=== PATIENT | male | born 1955 | race Caucasian/White ===

== ENCOUNTER → 2016-03-20 | Outpatient (CLI) | payer BC ==
--- NOTE | 2016-03-20 09:36 | DIAGNOSTIC IMAGING REPORT ---
CHEST 2 VIEWS ROUTINE CLINICAL HISTORY: I49.1 PAC (premature atrial contraction)J45.909 Asthmatic bronch COMPARISON STUDY: No previous studies for comparison. FINDINGS: The cardiac and mediastinal contours are normal. There is no evidence of focal pulmonary consolidation. There is no evidence of failure. No pleural effusions are visualized.[ IMPRESSION: No active disease in the chest. Electronically signed by: Taz Manuel M.D. 03/20/2016 9:34 AM Dictated Date/Time: 03/20/2016 9:34 AM
[2016-03-20 10:11] LABS: BASO % 0.6 %; BASO ABS # 0.03 K/uL (0-0.2); COMPLETE YES; HEMATOCRIT 44.3 % (42-52); IG% 0.2 %; LYMPH % 24.2 %; LYMPH ABS # 1.28 K/uL (1.2-3.4); MEAN CELL VOLUME 92.7 fL (80-100); MEAN CORPUSCULAR HEMOGLOBIN 31.4 pg (25-34); MEAN CORPUSCULAR HGB CONC 33.9 g/dl (32-36); MEAN PLATELET VOLUME 10.4 fL (7.4-10.4); MONO % 9.4 %; NEUT % 61.6 %; PLATELET COUNT 199 K/uL (130-400); RED BLOOD COUNT 4.78 M/uL (4.7-6.1)
[2016-03-20 10:49] LABS: BLOOD UREA NITROGEN 14 mg/dl (7-18); GLUCOSE 96 mg/dl (70-99)
[2016-03-20 10:50] LABS: ALKALINE PHOSPHATASE 96 U/L (45-117); CALCIUM 8.7 mg/dl (8.5-10.1); CARBON DIOXIDE 29 mmol/L (21-32); CHLORIDE 107 mmol/L (98-107); MAGNESIUM 2.4 mg/dl (1.8-2.4); POTASSIUM 4.1 mmol/L (3.5-5.1); SODIUM 143 mmol/L (136-145)
[2016-03-20 11:14] LABS: ALB/GLOB RATIO 1.1 (0.9-2); ALT/SGPT 35 U/L (12-78); AST/SGOT 22 U/L (15-37); CHOLESTEROL 176 mg/dl (0-200); CHOLESTEROL/HDL RATIO 4.4; HDL CHOLESTEROL 40 mg/dl; LDL CHOLESTEROL CALCULATED 111 mg/dl; TRIGLYCERIDES 123 mg/dl (0-150); VERY LOW DENSITY LIPOPROT CALC 25 mg/dl
== END | disposition home or self-care (01) ==
LOC: C.RAD 09:01
PROVIDERS: ATTEND Nurse Practitioner Family
DX: I49.1 Atrial premature depolarization (principal); J45.909 Unspecified asthma, uncomplicated; Z13.1 Encounter for screening for diabetes mellitus; Z13.220 Encounter for screening for lipoid disorders

== ENCOUNTER 2020-07-29 05:18 | Observation (INO) ==
--- NOTE | 2020-07-03 10:49 | PAT Medication Instructions ---
Medication Instructions Date of Service July 03, 2020 Home Medications glucosamine sulfate [Glucosamine] 1 tab PO QAM multivitamin 1 tab PO QAM zinc 50 mg PO Q2D STOP taking 2 weeks before surgery (or as soon as possible if surgery is within 2 weeks) glucosamine sulfate [Glucosamine] 1 tab PO QAM DO NOT take the morning of surgery multivitamin 1 tab PO QAM zinc 50 mg PO Q2D Other Notes If you have any questions please call us at [phone] or [phone] or [phone] or [phone]
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
--- NOTE | 2020-07-07 09:31 | XRay Report ---
XR chest Pre-admission PA/Lat HISTORY: 65 years-old Male pat [chronic degenerative joint disease COMPARISON: Chest radiographs 03/20/2016 TECHNIQUE: PA and lateral views of the chest FINDINGS: Cardiomediastinal and hilar silhouettes are within normal limits. No pneumothorax, pleural effusion, airspace consolidation or overt pulmonary edema. Degenerative changes of the shoulders and spine. IMPRESSION: No acute process. ACT 112: Negative or not required by law. The above report was generated using voice recognition software. It may contain grammatical, syntax o r spelling errors. Electronically signed by: Hugh Ahn M.D. 07/07/2020 9:29 AM
[2020-07-07 10:57] LABS: Basophils # (auto) 0.03 K/uL (0-0.2); Basophils % (auto) 0.7 %; Eosinophils # (auto) 0.12 K/uL (0-0.5); Eosinophils % (auto) 2.7 %; Hematocrit (blood only) 43.5 % (42-52); Hemoglobin 14.6 g/dL (14.0-18.0); Immature Granulocytes # (auto) 0.01 K/uL (0.00-0.02); Immature Granulocytes % (auto) 0.2 %; Lymphocytes # (auto) 1.03 K/uL (1.2-3.4); Lymphocytes % (auto) 23.6 %; Mean Corpuscular Hemoglobin 31.2 pg (25-34); Mean Corpuscular Hgb Conc 33.6 g/dL (32-36); Mean Corpuscular Volume 92.9 fL (80-100); Mean Platelet Volume 10.1 fL (7.4-10.4); Monocytes % (auto) 11.4 %; Neutrophils # (auto) 2.68 K/uL (1.4-6.5); Neutrophils % (auto) 61.4 %; Platelet Count 206 K/uL (130-400); RDW Coefficient of Variation 14.1 % (11.5-14.5); RDW Standard Deviation 47.7 fL (36.4-46.3); Red Blood Count 4.68 M/uL (4.7-6.1); White Blood Count 4.37 K/uL (4.8-10.8)
[2020-07-07 11:14] LABS: BUN Creatinine Ratio 13.5 (10-20); Creatinine Clr Calc Pharmacy 91.4 ml/min; Est GFR (African American) 105.7; Est GFR (Non-African American) 91.2; Potassium 4.9 mmol/L (3.5-5.1)
[2020-07-07 11:17] LABS: Partial Thromboplastin Ratio 1.1; Partial Thromboplastin Time 28.3 Seconds (21.0-31.0); Prothrombin Time 10.2 Seconds (9.0-12.0)
--- NOTE | 2020-07-07 12:32 | Electrocardiogram Report ---
Test Reason : Blood Pressure : / mmHG Vent. Rate : 066 BPM Atrial Rate : 066 BPM P-R Int : 170 ms QRS Dur : 088 ms QT Int : 388 ms P-R-T Axes : 066 019 030 degrees QTc Int : 406 ms Normal sinus rhythm Normal ECG When compared with ECG of 04-FEB-2020 07:48, Premature atrial complexes are no longer Present Confirmed by Hoang Johnson ([id number]) on 07/07/2020 12:32:13 PM Referred By: Keaton Carlton Confirmed By:Hoang Johnson
--- NOTE | 2020-07-26 11:19 | History and Physical Report ---
DATE OF ADMISSION: 07/29/2020 CHIEF COMPLAINT: Right knee pain, discomfort and instability. HISTORY OF PRESENT ILLNESS: The patient is a 65-year-old gentleman well known to me from a previous left knee scope done in 2013. He has got a long history of right knee problems dating back to an injury many years ago. His initial injury was back in the 1970s. Never had any surgery on this knee. He has developed increased pain, discomfort, and instability in his knee. It has gradually gotten worse over time. The instability is less of an issue and now just pain. 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 When he is up and on his leg for any period of time, it swells and gets painful. The more he is up on it, the more it hurts. He has been through extensive conservative treatment and not interested in anymore of that and would like to have his right knee fixed. Minimal relief from NSAIDS. PAST MEDICAL HISTORY: 1. Heart murmur. 2. Osteoarthritis. 3. Kidney stones. PAST SURGICAL HISTORY: Include, 1. Right shoulder surgery done by Dr. Davis. 2. Left knee scope done by myself in 2013. ALLERGIES: None. CURRENT MEDICATIONS: Include, 1. Glucosamine. 2. Daily vitamin. SOCIAL HISTORY: A 65-year-old male. Very active. Coaches Lacrosse. Does not smoke. FAMILY HISTORY: Noncontributory. REVIEW OF SYSTEMS: Negative for diabetes, neurologic problem, vascular problems, bleeding disorders. Denies any chest pain or shortness of breath. No history of DVT or PE. No known bleeding problems. PHYSICAL EXAMINATION: GENERAL: Shows a pleasant, middle-aged male, looks to be in excellent health. HEENT: Benign. NECK: Supple, no lymphadenopathy. LUNGS: Clear to auscultation. HEART: Has a regular rate and rhythm. ABDOMEN: Soft, nontender, nondistended. EXTREMITIES: Grossly neurovascularly intact except as follows: Examination of the right knee reveals a patient who ambulates independently. He has got varus alignment to his knee, which is increased with weightbearing. He has got a varus thrust. He has got bony hypertrophy in all 3 compartments. Small knee effusion. Fairly stiff knee with about a 10- to 15-degree flexion contracture, can only bend to about 100 degrees. He does have laxity with Dave testing. No pivot shift. X-RAYS: X-rays of the right knee reviewed. It shows advanced right knee DJD. He has got complete loss of his medial joint space. He has got tibiofemoral subluxation. He has got little loose body posteriorly. 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 His problem is now arthritis. He has failed conservative treatment and would like to have his right knee replaced. PLAN: We will take him to the operating room and do a right total knee replacement. The risks and benefits of this procedure were explained to the patient including, but not limited to, DVT, PE, , infection, neurological injury, vascular injury, bleeding problem, pain, limited range of motion, stiffness, failure to relieve his symptoms, incomplete relief of symptoms, need for further surgery in the future, fracture, leg length inequality, nerve palsy, persistent pain, incomplete relief of symptoms, etc. The patient understands and desires to proceed. Informed consent was obtained. As far as discharge plans, he is planning to be discharged to home using [facility] home health program. Will use TEDs and SCDs and baby aspirin for DVT prophylaxis.
[~2020-07-29 05:18] MED LIST: ceFAZolin 2000MG 2,000 MG/15 ML SYR IV ONE
[2020-07-29] MEDS ORDERED: GABAPENTIN 300 MG CAP PO SCH (06:00)
[2020-07-29] MEDS ORDERED: LR 60ML/HR IV SCH (06:00)
[2020-07-29] MEDS ORDERED: FAMOTIDINE 20 MG TAB PO SCH (06:00)
[2020-07-29] MEDS ORDERED: METOCLOPRAMIDE HCL 10 MG TABLET PO SCH (06:00)
[2020-07-29] MEDS ORDERED: ACETAMINOPHEN 500 MG TAB PO SCH (06:00)
[2020-07-29] MEDS ORDERED: TRANEXAMIC ACID 1,000 MG **IV Intra-op IV SCH (06:00)
[2020-07-29] MEDS ORDERED: Scopolamine 1 MG TDSY TD SCH (06:00)
[2020-07-29] MEDS ORDERED: LR 500ML BOLUS, THEN 15ML/HR IV SCH (06:00)
[2020-07-29] MEDS ORDERED: BUPIVACAINE LIPOSOME/PF 266 MG, BUPIVACAINE/EPINEPHRINE 50 ML, SODIUM CHLORIDE 0.9% 30 ... INFIL SCH (06:00)
[2020-07-29] MEDS ORDERED: fentaNYL citrate 100 MCG/2 ML VIAL ONE (06:24)
[2020-07-29] MEDS ORDERED: MIDAZOLAM HCL 1 MG/ML 2ML VIAL ONE ×2 (06:24→06:44)
[2020-07-29] MEDS ORDERED: BUPIVACAINE 0.5 % 5 MG/1 ML PF 10ML VIAL ONE (06:32)
[2020-07-29] MEDS ORDERED: BUPIVACAINE 0.25% 30 ML VIAL ONE ×2 (06:32→06:53)
[2020-07-29] MEDS ORDERED: ATROPINE SULFATE 0.1 MG/ML 10ML SYR IV PRN (06:42)
[2020-07-29] MEDS ORDERED: fentaNYL citrate 100 MCG/2 ML VIAL IV PRN (06:42)
[2020-07-29] MEDS ORDERED: ONDANSETRON INJ 2 MG/ML 2 ML VIAL IV PRN ×2 (06:42→10:07)
[2020-07-29] MEDS ORDERED: ePHEDrine sulfate 50 MG/ML AMP IV PRN (06:42)
[2020-07-29] MEDS ORDERED: ceFAZolin 2000MG 2,000 MG/15 ML SYR IV ONE (06:49)
--- NOTE | 2020-07-29 06:51 | History & Physical Bridge Note ---
Date of Service July 29, 2020 History & Physical Bridge Note I have examined the patient, reviewed the History & Physical and in the interval since the performance of the History & Physical I have noted the following changes of clinical significance: no changes noted
[2020-07-29] MEDS ORDERED: SODIUM CHLORIDE 0.9% PF 50 ML VIAL ONE (06:52)
[2020-07-29] MEDS ORDERED: EPINEPHrine INJ 1 MG/ML AMP ONE (06:53)
[2020-07-29] MEDS ORDERED: ceFAZolin 2,000 MG/15 ML IV PUSH IV ONE (06:53)
[2020-07-29] MEDS ORDERED: BUPIVACAINE LIPOSOME 1.3% 266 MG/20 ML VIAL ONE (06:53)
[2020-07-29] MEDS ORDERED: PROPOFOL IV EMULSION 10 MG/ML 20 ML VIAL IV ONE (07:07)
--- NOTE | 2020-07-29 08:53 | Operative Report ---
Post Operative Report Pre & Post Diagnosis Operation Date: 07/29/20 07:00 Pre-Op Diagnosis: Right Knee Advanced Degenerative Joint Disease Post-Op Diagnosis: Right Knee Advanced Degenerative Joint Disease I identified the patient and participated in the time-out.: Yes Procedure Operation Date: 07/29/20 07:00 Actual Procedures p Right Total Knee Arthroplasty(Right) - Keaton Carlton MD Surgeon Keaton Carlton MD Dinkey Operator FLAVIO Coleman Estimated Blood Loss 50 Findings Consistent with Post-Op Diagnosis Operative findings revealed advanced right knee tricompartment DJD. He had extensive grade 4 [id number] disease in all 3 compartments. A varus deformity to his knee with a very stiff knee. A chronic ACL deficiency. Osteophytes in all 3 compartments. Fluids 400 cc. Specimens Right knee sent for pathology. 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 He initially injured this back in the 70s. Never had a surgical treatment would have clearly had an ACL deficient knee at that time. Over time has been through extensive conservative treatments which have become l ess successful in the past several years. X-rays show advanced right knee tricompartment DJD. He is got a chronic ACL deficiency. He elected proceed with surgical treatment. Description of Procedure Operative implants consisted of: 1 Biomet Vanguard size 72.5 right posterior stabilized femoral component. 2. Biomet size 79 tibial tray. 3. 10 mm posterior stabilized polyethylene insert. 4. 31 x 8 all polypatella. The patient was taken the operating, identified, placed on the operating table supine position but all contact areas were properly padded IV antibiotics 5 by anesthesia team. Spinal anesthetic and abductor canal block had been provided in the holding area. Shaffer catheter was placed in a sterile fashion. Right thigh turn was then placed in the right lower extremities and prepped and draped in usual sterile fashion. The right leg was only exsanguinated with use of an Esmarch and turns placed at 3 mmHg. An anterior approach to the right knee was then performed through longitudinal incision centered over the patella. Sharp dissection got through subcutaneous tissue down the extensor mechanism. A medial parapatellar a rthrotomy incision was made. Some subperiosteal dissection was carried out medially. The fat pad was dissected from each patella tendon. Lateral patellofemoral ligament was released. Patella was subluxated laterally knee was flexed. The osteophytes were taken off the distal femur. The ACL was absent. The PCL was released from the distal femur and the tibia subluxated anteriorly. The external tibial alignment jig was then placed in the interface the tibia and adjusted 16 mm medially. Proximal tibial cut was made. It was cutting a little bit above the most deficient aspect of the posterior medial tibial plateau where he had quite a bit of wear. Some osteophytes taken off medial and posterior medially. The tibia sized to a size 79. Attention drawn the femur. The distal femur was then with a sharp drill. Intramedullary canal was suction. A right 6 degree valgus cutting guide was placed. Distal femoral cutting block was pinned in place. Distal femoral cut was made to take an additional 3 mm of bone off distal femur. The femur was then sized to a size 72.5. The AP cutting block was pinned parallel to the epicondylar axis which was 5 degrees of external rotation. The anterior cut, anterior chamfer, posterior cut, posterior chamfer cuts were made. The box cutting guide was placed in just slight lateral box cut was made. The knee was flexed. The remnants of the medial and lateral menisci were excised. The osteophytes were taken off the posterior aspect the femur. A trial femoral component was placed. The tibial tray was pinned in maximum external rotation and the drill and stem punch were used to create defect in proximal tibia for the tibial tray. Knee was then trialed and a 10 mm insert fit most appropriately. Attention drawn the patella. Patella cleaned of all soft tissues. Patella thickness measured 23 mm in thickness was cut down to 15. Was sized to a size 31 patella. The locals were drilled for the 31 patella. The lateral osteophyte is moved. Patella button was placed. Knee was taken through range of motion patella tracked nicely with no thumbs test. Attention drawn to placing permanent components. All trial components were removed. Bone plug was placed in the distal femur limit blood loss put a double batch Palacos G cement was mixed. Biomet ScubaTribeguard size 72.5 right posterior stabilized femoral component, size 79 tibial tray, 10 mm posterior stabilized polyethylene insert, and a 31 x 8 all polypatella were then cemented in place. The knee was brought out into full extension until the cement hardened. Final cement check was then performed. The pericapsular tissues were injected with total 100 cc of combination of 20 cc of Exparel, 30 cc normal saline, 50 cc of quarter percent Marcaine with epinephrine. Patient did receive 1 g tranexamic acid. The tourniquet was then let down for final tourniquet time of 54 minutes. Hemostasis assured use electrocautery. The extensor mechanism closed with combination 1 PDS suture #1 Vicryl suture in [id number] fashion with extensor Maxon checked found to be intact the subcutaneous tissue then closed with 2 Dexon suture in a buried interrupted fashion skin was closed skin quincy. Legs then cleaned dried and a sterile dressing both Xeroform, 4 x 4's, sterile cast padding, and Wilmer bandage were applied. The patient then transferred to the recovery room in stable condition. Patient tolerated procedure well and there were no complications. Kee Coleman, my physician computer assistant, was present for the entire procedure. His assistance was essential and required for appropriate patient positioning, prepping and draping, surgical exposure, performing the technical details of the operation, placement the implants, closure of the wound, and placement of the st erile bandage. I attest to the content of the Intraoperative Record and any orders documented therein. Any exceptions are noted below.
--- NOTE | 2020-07-29 09:08 | XRay Report ---
RIGHT KNEE 2 VIEWS History: Right total knee arthroplasty. Degenerative arthritis. Postop. FINDINGS: The patient is status post a right total knee arthroplasty. The hardware is intact. No frac ture or dislocation. Skin quincy are in place. IMPRESSION: Right total knee arthroplasty. No evidence for hardware complication. ACT 112: Negative or not required by law. Electronically signed by: Celestino Adorno M.D. 07/29/2020 9:06 AM
[2020-07-29] MEDS ORDERED: MAGNESIUM HYDROXIDE SUSP 30 ML UDC PO PRN (10:07)
[2020-07-29] MEDS ORDERED: ALUMINUM/MAGNESIUM SUSP 30 ML UDC PO PRN (10:07)
[2020-07-29] MEDS ORDERED: diphenhydrAMINE Capsule 25 MG CAP PO PRN (10:07)
[2020-07-29] MEDS ORDERED: bisacodyL 10 MG SUPP PR PRN (10:07)
[2020-07-29] MEDS ORDERED: TAMSULOSIN HCL 0.4 MG CAP PO PRN (10:07)
[2020-07-29] MEDS ORDERED: NALOXONE HCL 0.4 MG/1 ML VIAL/CARP IV PRN (10:07)
[2020-07-29] MEDS ORDERED: NON-FORMULARY MEDICATION (Glucosamine Sulfate [Glucosamine] 500 mg Tablet) PO SCH (10:07)
[2020-07-29] MEDS ORDERED: METOCLOPRAMIDE HCL INJ 5 MG/ML 2 ML VIAL IV PRN (10:07)
[2020-07-29] MEDS ORDERED: HYDROmorphone INJ 0.5 MG/0.5 ML SYR IV PRN (10:07)
[2020-07-29] MEDS ORDERED: MULTIVITAMIN TAB PO SCH (10:07)
[2020-07-29] MEDS: SODIUM CHLORIDE 0.9% 1000ML 1,000 ML IV SCH ×3 (11:10→23:06)
[2020-07-29] MEDS: KETOROLAC 30 MG/ML VIAL IV SCH ×3 (11:11→23:05)
--- NOTE | 2020-07-29 11:18 | Anesthesiology Progress Note ---
Date of Service July 29, 2020 Anesthesia Post Procedure Vital Signs Vital Signs: Temp Pulse Pulse Pulse Resp BP Pulse Ox 07/29/20 10:48 74 16 136/84 97 07/29/20 10:37 36.4 C L 07/29/20 09:45 34.8 C L 57 L 16 134/96 95 07/29/20 09:30 68 13 126/80 94 07/29/20 09:20 65 16 122/81 94 07/29/20 09:10 36.2 C L 63 14 118/73 95 07/29/20 09:00 79 16 106/79 95 07/29/20 08:50 78 12 118/74 99 07/29/20 08:40 36.1 C L 77 14 119/72 100 07/29/20 06:05 36.3 C L 83 18 132/92 98 Pain Intensity Right Knee: Pain Intensity: 0 Transfer of Care Handoff Completed per policy Notes Mental Status: alert / awake / arousable and participated in evaluation Nausea / Vomiting: adequately controlled Pain: adequately controlled Airway Patency, RR, SpO2: stable & adequate BP & HR: stable & adequate Hydration State: stable & adequate Neuraxial Anesthesia: was administered and sensory block is resolving Anesthetic Complications: no major complications apparent and Pt Satisfied with anesthetic care
[2020-07-29] MEDS: ASPIRIN 81 MG ECTAB PO SCH ×2 (12:17→20:54)
[2020-07-29] MEDS: DOCUSATE SODIUM 100 MG CAP PO SCH ×2 (12:18→20:54)
[2020-07-29] MEDS: MULTIVITAMIN TAB PO SCH (12:18)
[2020-07-29] MEDS: ACETAMINOPHEN 500 MG TAB PO SCH ×2 (14:12→20:54)
[2020-07-29] MEDS ORDERED: TRANEXAMIC ACID / 0.7% NACL 1,000 MG/100 ML BAG IV SCH (15:00)
[2020-07-29] MEDS: Scopolamine CHECK PATCH PLACEMENT SCH (15:38)
[2020-07-29] MEDS: ceFAZolin 2000MG 2,000 MG/15 ML SYR IV SCH ×2 (15:38→23:06)
[2020-07-29] MEDS: traMADol HCL 50 MG TABLET PO PRN (16:54)
[2020-07-29] MEDS: ASCORBIC ACID 500 MG TAB PO SCH (16:56)
[2020-07-29] MEDS ORDERED: SENNA 8.6 MG TAB PO SCH (21:00)
[2020-07-30] MEDS: Scopolamine CHECK PATCH PLACEMENT SCH ×2 (00:04→08:40)
[2020-07-30] MEDS: KETOROLAC 30 MG/ML VIAL IV SCH ×2 (05:44→13:14)
[2020-07-30] MEDS: ACETAMINOPHEN 500 MG TAB PO SCH (05:44)
[2020-07-30 06:18] LABS: Hemoglobin 11.3 g/dL (14.0-18.0); Mean Corpuscular Hgb Conc 33.2 g/dL (32-36); Mean Corpuscular Volume 93.4 fL (80-100); Mean Platelet Volume 9.8 fL (7.4-10.4); Platelet Count 153 K/uL (130-400); RDW Coefficient of Variation 13.7 % (11.5-14.5); RDW Standard Deviation 46.9 fL (36.4-46.3); Red Blood Count 3.64 M/uL (4.7-6.1)
[2020-07-30 06:47] LABS: BUN Creatinine Ratio 20.8 (10-20); Creatinine Clr Calc Pharmacy 104.6 ml/min; Est GFR (African American) 111.7 ml/min; Est GFR (Non-African American) 96.4 ml/min
[2020-07-30] MEDS: traMADol HCL 50 MG TABLET PO PRN (07:36)
--- NOTE | 2020-07-30 07:41 | Orthopedic Progress Note ---
Date of Service July 30, 2020 Assessment & Plan (1) Status post total right knee replacement: Pain is reasonably controlled. PT/OT dvt prophylaxis discharge planning: home possibly today with home health if he does well in PT Subjective .65 year old POD #1 from right tka. Doing well. Has some soreness in his knee. No other complaints. Review of Systems All systems reviewed & are unremarkable except as noted in HPI & below. Physical Exam . alert and oriented. NAD Right leg: dressing intact. able to dorsiflex and plantarflex. NVI Results & Data Results & Data Laboratory Results . Diagnostic Findings . PG Care Time/CCT Total # of Minutes Spent Total Time Spent with Patient: Total time spent is greater than 50% in coordination of care (as documented) at patient's floor/unit and/or counseling patient: Coding Level of Care Code 39968 Post Operative Follow-Up Diagnoses Status post total right knee replacement Z96.651
[2020-07-30] MEDS ORDERED: dexAMETHasone 10 MG in SYRINGE 0 ML IV SCH (08:00)
[2020-07-30] MEDS: MULTIVITAMIN TAB PO SCH (08:45)
[2020-07-30] MEDS: ASCORBIC ACID 500 MG TAB PO SCH (08:46)
[2020-07-30] MEDS: ASPIRIN 81 MG ECTAB PO SCH (08:46)
[2020-07-30] MEDS: DOCUSATE SODIUM 100 MG CAP PO SCH (08:48)
[2020-07-30] MEDS ORDERED: ZINC SULFATE 220 MG CAPSULE PO SCH (09:00)
--- NOTE | 2020-07-30 09:20 | Anesthesiology Progress Note ---
Date of Service July 30, 2020 Anesthesia Post Procedure Vital Signs Vital Signs: Temp Pulse Pulse Pulse Resp BP BP 07/30/20 06:57 36.9 C 77 16 121/74 07/30/20 04:16 37.2 C 82 16 98/51 L 07/30/20 00:10 36.7 C 67 16 121/63 07/29/20 19:40 36.5 C 67 20 104/76 07/29/20 12:40 36.5 C 71 16 149/88 H 07/29/20 11:31 36.4 C L 54 L 16 144/95 H 07/29/20 10:48 74 16 136/84 07/29/20 10:37 36.4 C L 07/29/20 09:45 34.8 C L 57 L 16 134/96 07/29/20 09:30 68 13 126/80 07/29/20 09:20 65 16 122/81 Pulse Ox 07/30/20 06:57 98 07/30/20 04:16 98 07/30/20 00:10 97 07/29/20 19:40 96 07/29/20 12:40 97 07/29/20 11:31 99 07/29/20 10:48 97 07/29/20 10:37 07/29/20 09:45 95 07/29/20 09:30 94 07/29/20 09:20 94 Pain Intensity Right Knee: Pain Intensity: 2 Notes Mental Status: alert / awake / arousable and participated in evaluation Patient Amnestic to Procedure: Yes Nausea / Vomiting: adequately controlled Pain: adequately controlled Airway Patency, RR, SpO2: stable & adequate BP & HR: stable & adequate Hydration State: stable & adequate Neuraxial Anesthesia: was administered and sensory block resolved Anesthetic Complications: no major complications apparent
--- NOTE | 2020-08-02 07:32 | Discharge Summary ---
Date of Service August 02, 2020 Discharge Data Procedures Performed Operation Date: 07/29/20 07:00 Actual Procedures p Right Total Knee Arthroplasty(Right) - Keaton Carlton MD Hospital Course (1) Status post total right knee replacement: This patient is a 65 year old admitted on 07/29/20 and underwent total knee arthroplasty. He tolerated the procedure well and there were no complications. Transferred to the PACU post op and later to the orthopedic floor for further care. He was given ancef for antibiotic prophylaxis. He was also given LUIS stockings, SCDs, and aspirin for DVT prophylaxis. Hemoglobin, hematocrit, and vital signs were monitored during his hospital stay and remained stable. Did not require any blood transfusions. There were no complications during his hospital stay. By post op day #1 the patient was tolerating a regular diet, pain was reasonably controlled with oral pain medicine, and he was participating in physical therapy. On post op day #1 the patient was discharged home and set up with home health care. He was given printed discharge instructions including prescriptions for extra strength tylenol, aspirin, and tramadol. Continue physical therapy, weight bearing as tolerated. Continue LUIS stockings. Follow up approximately 2 weeks post op or sooner if there are problems or concerns. Coding Level of Care Code None Diagnoses Status post total right knee replacement Z96.651
== END 2020-07-30 13:30 | disposition home health service (06) ==
LOC: 3E 05:18 → ASU 05:18
DX: M16.11 Unilateral primary osteoarthritis, right hip

== ENCOUNTER 2020-09-11 09:50 | Observation (INO) ==
--- NOTE | 2020-09-09 10:23 | Anesthesiology Consultation ---
Date of Service September 09, 2020 Assessment & Plan (1) Encounter for pre-operative examination: Chart Review Chart Review: Acceptable Risk for Surgery (pending preop Covid testing results ) and Patient NOT seen in Pre Admission Testing Per nursing assessment 09/01/20, patient denies any recent travel. No known Covid positive contacts or Covid related symptoms. No known Covid infection in the past 90 days. Pt vaccinated for Covid. Covid test 09/09/20= results pending Right TKA 07/29/20= Done with SAB at L3 with 1 attempt. No anesthesia issues noted per anesthesia records or anesthesia progress note. Right shoulder arthroscopy, debridement, biceps tenodesis 02/07/20= Done under GA with LMA #5. No anesthesia issues noted per anesthesia record. History Surgery Operation Date: 09/11/20 14:50 Proposed Procedures p Transurethral Resection Prostate - Noe Sanchez DO s Cystolithopaxy - Noe Sanchez DO Height/Weight Height: 5 ft 11 in Weight: 87.09 kg Allergies Allergy/AdvReac Type Severity Reaction Status Date / Time No Known Allergies Allergy Unknown Verified 09/01/20 11:17 Medications Home Medications Medication Instructions Recorded Confirmed Last Taken aspirin 81 mg PO BID 45 Days #90 tab 07/29/20 09/08/20 Unknown tramadol 50 - 100 mg PO Q6H PRN #40 tab 07/29/20 09/08/20 Unknown tramadol 50 mg tablet 50 - 100 mg PO Q6 PRN #40 tab 08/11/20 09/08/20 Unknown tamsulosin [Flomax] 0.4 mg PO PM 09/01/20 09/08/20 Unknown Past Medical History Medical History Bladder stone History of cardiac murmur No significant murmur noted at PAT exam on 07/07/20 History of COVID-19 02/2021 (SYMPTOMS-FEVER, CHEST DISCOMFORT/FATIGUE, LOSS OF TASTE AND SMELL) Symptoms have significant improved - very slight taste and smell issues History of kidney stones Mucous cyst of digit of hand Right thumb - very small cyst- no significant issues (size fluctuates) Pins and needles sensation after knee surgery (07/2020) for several nights, would have this sensation to hands, very bothersome, unsure if reaction to tramadol or flomax Urinary retention Shaffer catheter in place Varicose veins of lower extremity Past Family History Family History Father Family hx colonic polyps Other No family history of adverse response to anesthesia Past Surgical History Surgical History History of colonoscopy History of shoulder surgery RT History of tooth extraction History of total knee replacement right Status post repair of medial collateral ligament left knee Status post right knee replacement Social History Smoking Status: Never smoker Do You Dip or Chew Tobacco: No Hx Alcohol Use: Yes Alcohol type: beer, wine and hard liquor alcohol intake frequency: a few times a month Hx Substance Use: No substance use type: does not use Lab Results Anesthesia Preop Results Results Anesthesia Widget: WBC 6.68 K/uL (4.8-10.8) 09/09/20 Hgb 13.5 g/dL (14.0-18.0) L 09/09/20 Hct 41.1 % (42-52) L 09/09/20 Plt 213 K/uL (130-400) 09/09/20 Na 140 mmol/L (136-145) 09/09/20 K 3.8 mmol/L (3.5-5.1) 09/09/20 Cl 109 mmol/L (98-107) H 09/09/20 CO2 27 mmol/L (21-32) 09/09/20 BUN 10 mg/dl (7-18) 09/09/20 Creat 0.78 mg/dl (0.6-1.4) 09/09/20 Glucose Level 90 mg/dl (70-99) 09/09/20 Urine Color [place] 09/09/20 Urine Appearance Turbid (Clear) A 09/09/20 Urine pH 5.5 (4.5-7.5) 09/09/20 Urine Specific [place] 1.021 (1.000-1.030) 09/09/20 Urine Protein 2+ (Negative) H 09/09/20 Urine Glucose (UA) Negative (Negative) 09/09/20 Urine Ketones Negative (Negative) 09/09/20 Urine Blood 3+ (Negative) H 09/09/20 Urine Nitrite Positive (Negative) A 09/09/20 Urine Bilirubin 1+ (Negative) H 09/09/20 Urine Urobilinogen Negative (Negative) 09/09/20 Urine Leukocyte Esterase 1+ (Negative) H 09/09/20 Urine WBC (Auto) 10-30 /hpf (0-5) H 09/09/20 Urine RBC (Auto) >30 /hpf (0-4) H 09/09/20 Urine Hyaline Casts (Auto) 1-5 /lpf (0-5) 09/09/20 Urine Epithelial Cells (Auto) 10-20 /lpf (0-5) H 09/09/20 Urine Bacteria (Auto) Negative (Negative) 09/09/20 Urine Yeast Not Reportable 09/09/20 Testing Electrocardiogram Date: 07/07/20 Findings: + NSR @ (66bpm) Normal EKG per cardio. Chest X-Ray Date: 07/07/20 Findings: + NAD
[~2020-09-11 09:50] MED LIST changes: +LACTATED RINGER'S 1,000 ML IV SCH; -ceFAZolin 2000MG 2,000 MG/15 ML SYR IV ONE; +ceFAZolin 2000MG 2,000 MG/15 ML SYR IV SCH
[2020-09-11] MEDS ORDERED: ePHEDrine sulfate 50 MG/ML AMP IV PRN (11:15)
[2020-09-11] MEDS ORDERED: ONDANSETRON INJ 2 MG/ML 2 ML VIAL IV PRN ×2 (11:15→17:00)
[2020-09-11] MEDS ORDERED: ATROPINE SULFATE 0.1 MG/ML 10ML SYR IV PRN (11:15)
[2020-09-11] MEDS ORDERED: HYDROmorphone INJ 1 MG/ML SYRINGE IV PRN (11:15)
[2020-09-11] MEDS ORDERED: PROPOFOL IV EMULSION 10 MG/ML 20 ML VIAL IV ONE (11:26)
[2020-09-11] MEDS ORDERED: DEXAMETHASONE SOD INJ 4 MG/ML VIAL ONE (11:26)
[2020-09-11] MEDS ORDERED: ONDANSETRON INJ 2 MG/ML 2 ML VIAL ONE (11:26)
[2020-09-11] MEDS ORDERED: fentaNYL citrate 100 MCG/2 ML VIAL ONE ×2 (11:27→13:51)
--- NOTE | 2020-09-11 12:48 | History & Physical Bridge Note ---
Date of Service September 11, 2020 History & Physical Bridge Note I have examined the patient, reviewed the History & Physical and in the interval since the performance of the History & Physical I have noted the following changes of clinical significance: no changes noted
[2020-09-11] MEDS ORDERED: BACITRACIN OINT 15 GM TUBE ONE (14:51)
--- NOTE | 2020-09-11 15:00 | Operative Report ---
[facility] Post Operative Report Pre & Post Diagnosis Operation Date: 09/11/20 14:50 Pre-Op Diagnosis: Benign Prostatic Hyperplasia with lower urinary tract symptoms Post-Op Diagnosis: Benign Prostatic Hyperplasia with lower urinary tract symptoms I identified the patient and participated in the time-out.: Yes Procedure Operation Date: 09/11/20 14:50 Actual Procedures p Transurethral Resection Prostate with destruction and extraction of stones - Noe Sanchez DO Surgeon Noe Sanchez, II, DO Feed Mixer None Estimated Blood Loss 20 Findings Consistent with Post-Op Diagnosis Large Prostate with obstruction. Innumerable small bladder stones in base of bladder. Specimens Prostate adenoma. Drains 22Fr [address] Catheter Anesthesia Type General Complications none Disposition Disposition: Recovery Room Indications Patient with obstruction due to prostate enlargement. Risks and benefits discussed at length. Description of Procedure Patient was consented and brought back to the operating room. Patient was placed under anesthesia in the supine position and moved to the dorsal lithotomy position. Patient was prepped and draped in the regular sterile fashion. A time out was completed. A 30degree Cystoscope was placed into the bladder and the entire bladder was examined. The UO's were identified as well as the bladder neck, trigone, dome, and the other important landmarks. The prostatic urethra and large lobes/adenoma was assessed and the veru and bladder neck identified and area/size was assessed. Patient had a large amount of debris and bladder stones in the base of the bladder. These were difficult to access due to the patient's high bladder neck and extremely large median lobe with projection into the bladder. Also a considerable amount of obstruction and projection into bladder from the left lateral lobe. The resection scope was placed and the fine bipolar loop was selected. Starting at the 5 and 7 o'clock positions, a channel was created from bladder neck to the veru. The patient had a massive median lobe with a considerable enlargement of the left lateral lobe with moderate enlargement of the right lateral lobe. The 5 to 7 o'clock position was able to be resected and this created a working channel which opened the area considerably. Both UOs were monitored throughout the process. They were in close relation to the bladder neck but were able to be avoided with close monitoring. Assessing the channel a considerable amount of obstruction was still coming from the left lateral lobe. Resection was then taken from the 1 o'clock position resecting down to the 5-7 o'clock channel. A large amount of prostate was resected in this manner. This considerably improved the opening and allowed for a drastic improvement of flow as well as better access to the bladder stones. Patient had innumerable small bladder stones throughout base of the bladder. These were destroyed and able to be irrigated and removed. The Specimen was removed and sent for analysis. The resection bed and any bleeding areas were fulgurated/cauterized and the entire area inspected. All bleeding was controlled. The bladder was inspected a final time. The bladder was emptied and irrigated. All specimen and debris was removed. The scope was removed with the bladder partially full. A catheter was placed and balloon elevated. This was easily irrigated. The patient was cleaned, aroused from anesthesia, and transferred to the pacu in stable condition having tolerated the procedure well with no complications. I was present and participated in all aspects of the procedure. The patient will be monitored in the PACU until transferred. We will plan to maintain catheter for 7 to 10 days. We will have CBI overnight. We will monitor with this. Due to the extreme size of the prostate as well as the large amount of bladder stones that need to be removed patient will likely need at some point a another assessment and possible further resection in order to have a more long-term result. I attest to the content of the Intraoperative Record and any orders documented therein. Any exceptions are noted below.
[2020-09-11] MEDS: fentaNYL citrate 100 MCG/2 ML VIAL IV PRN ×3 (15:28→15:38)
--- NOTE | 2020-09-11 16:28 | Anesthesiology Progress Note ---
Date of Service September 11, 2020 Anesthesia Post Procedure Vital Signs Vital Signs: Temp Pulse Pulse Resp BP BP Pulse Ox 09/11/20 16:15 77 13 121/77 94 09/11/20 16:05 78 17 119/79 94 09/11/20 15:55 36.7 C 90 16 128/89 93 09/11/20 15:45 83 20 137/93 94 09/11/20 15:35 96 H 12 134/88 97 09/11/20 15:25 81 12 140/85 95 09/11/20 15:15 78 21 139/85 99 09/11/20 15:05 78 17 132/75 100 09/11/20 14:59 36.1 C L 79 20 138/78 94 09/11/20 10:15 36.4 C L 103 H 20 115/75 97 Pain Intensity Bilateral Other: Pain Intensity: 5 Penis: Pain Intensity: 4 Transfer of Care Handoff Completed per policy Notes Mental Status: alert / awake / arousable Patient Amnestic to Procedure: Yes Nausea / Vomiting: adequately controlled Pain: adequately controlled Airway Patency, RR, SpO2: stable & adequate BP & HR: stable & adequate Hydration State: stable & adequate Anesthetic Complications: no major complications apparent
[2020-09-11] MEDS ORDERED: PHENAZOPYRIDINE HCL 200 MG TAB PO PRN (17:00)
[2020-09-11] MEDS ORDERED: MoRPHine SULFATE 2 MG/ML CARP IV PRN (17:00)
[2020-09-11] MEDS ORDERED: BELLADONNA/OPIUM SUPP 60 MG SUPP PR PRN (17:00)
[2020-09-11] MEDS: SODIUM CHLORIDE 0.9% 1000ML 1,000 ML IV SCH (17:48)
[2020-09-11 18:20] LABS: Basophils # (auto) 0.01 K/uL (0-0.2); Basophils % (auto) 0.2 %; Eosinophils # (auto) 0.02 K/uL (0-0.5); Eosinophils % (auto) 0.3 %; Hematocrit (blood only) 38.5 % (42-52); Hemoglobin 12.7 g/dL (14.0-18.0); Immature Granulocytes # (auto) 0.01 K/uL (0.00-0.02); Immature Granulocytes % (auto) 0.2 %; Lymphocytes # (auto) 0.49 K/uL (1.2-3.4); Lymphocytes % (auto) 7.7 %; Mean Corpuscular Hemoglobin 31.8 pg (25-34); Mean Corpuscular Volume 96.3 fL (80-100); Mean Platelet Volume 9.7 fL (7.4-10.4); Monocytes # (auto) 0.13 K/uL (0.11-0.59); Neutrophils # (auto) 5.74 K/uL (1.4-6.5); Neutrophils % (auto) 89.6 %; Platelet Count 194 K/uL (130-400); RDW Coefficient of Variation 13.8 % (11.5-14.5); RDW Standard Deviation 49.3 fL (36.4-46.3)
[2020-09-11 18:35] LABS: Albumin Level 3.4 gm/dl (3.4-5.0); BUN Creatinine Ratio 16.2 (10-20); Calcium 9.1 mg/dl (8.5-10.1); Creatinine Clr Calc Pharmacy 96.9 ml/min; Est GFR (African American) 108.3 ml/min; Est GFR (Non-African American) 93.5 ml/min; Potassium 4.2 mmol/L (3.5-5.1)
[2020-09-11 18:39] LABS: Bilirubin,Total 0.6 mg/dl (0.2-1); Globulin 3.4 gm/dl (2.5-4.0); Total Protein 6.8 gm/dl (6.4-8.2)
[2020-09-11] MEDS: ceFAZolin 2000MG 2,000 MG/15 ML SYR IV SCH (20:27)
[2020-09-11] MEDS: DOCUSATE SODIUM 100 MG CAP PO SCH (20:27)
[2020-09-11] MEDS: oxyCODONE/ACETAMINOPHEN 5mg/325mg TAB PO PRN (23:04)
[2020-09-12] MEDS: SODIUM CHLORIDE 0.9% 1000ML 1,000 ML IV SCH (05:21)
[2020-09-12] MEDS: ceFAZolin 2000MG 2,000 MG/15 ML SYR IV SCH ×2 (05:21→13:11)
[2020-09-12 07:48] LABS: Basophils # (auto) 0.01 K/uL (0-0.2); Basophils % (auto) 0.1 %; Hematocrit (blood only) 37.3 % (42-52); Hemoglobin 12.2 g/dL (14.0-18.0); Immature Granulocytes # (auto) 0.02 K/uL (0.00-0.02); Immature Granulocytes % (auto) 0.3 %; Lymphocytes # (auto) 0.91 K/uL (1.2-3.4); Lymphocytes % (auto) 12.4 %; Mean Corpuscular Hemoglobin 30.7 pg (25-34); Mean Corpuscular Hgb Conc 32.7 g/dL (32-36); Monocytes # (auto) 0.55 K/uL (0.11-0.59); Monocytes % (auto) 7.5 %; Neutrophils # (auto) 5.85 K/uL (1.4-6.5); Neutrophils % (auto) 79.7 %; Platelet Count 234 K/uL (130-400); RDW Coefficient of Variation 13.6 % (11.5-14.5); RDW Standard Deviation 47.2 fL (36.4-46.3); Red Blood Count 3.97 M/uL (4.7-6.1); White Blood Count 7.34 K/uL (4.8-10.8)
[2020-09-12 08:12] LABS: BUN Creatinine Ratio 12.7 (10-20); Calcium 8.9 mg/dl (8.5-10.1); Creatinine Clr Calc Pharmacy 98.1 ml/min; Est GFR (African American) 108.9 ml/min; Est GFR (Non-African American) 93.9 ml/min; Potassium 3.6 mmol/L (3.5-5.1)
--- NOTE | 2020-09-12 09:07 | Urology Progress Note ---
Date of Service September 12, 2020 Assessment & Plan (1) Benign localized hyperplasia of prostate with urinary obstruction: (2) Bladder stones: (3) Acute urinary retention: 65 year-old male patient who is POD#1 transurethral resection of prostate with destruction and extraction of stones with Dr. Sanchez. -Patient clinically progressing as expected. -He is afebrile, vital signs stable. -Labs reviewed - white count, hemoglobin, and creatinine stable. -Three-way mueller catheter intact draining clear yellow urine with pink sediment. -CBI clamped at time of exam, will reassess later this AM. -Advance diet to regular. -Discontinue IV fluids. -Encourage ambulation. -Will plan to reassess patient later this morning. -Likely discharge home today presuming he continues to clinically progress. -Maintain catheter upon discharge, will arrange appropriate outpatient follow- up. -Expected clinical course reviewed with patient, all questions answered. Admission and Anticipated Discharge Date Admission Date: September 11, 2020 Subjective POD #1 transurethral resection of prostate with destruction and extraction of bladder stones. Patient doing well post procedure. Reports minimal pain this AM. Has mild burning to meatus with mueller catheter. Three way mueller catheter intact with CBI infusing, urine clear yellow in tubing with pink sediment. Denies nausea or vomiting. Denies fevers or chills. Has passed flatus with small BM last evening. Ready for solid foods this morning. He reports he would like to go home today. Chart review: Afebrile, vital signs stable. Wbc 7.34 Hgb 12.2 Creatinine 0.81 Preop urine culture >100,000 cfu Coag negative Staph. Denies additional urologic concerns today. Review of Systems Constitutional: as per Subjective / HPI; no fever and no chills Gastrointestinal: as per Subjective / HPI; no nausea and no vomiting Genitourinary: + as per Subjective / HPI Physical Exam Constitutional: well developed and well nourished; no acute distress and not ill appearing Respiratory: normal respiratory effort and able to speak in complete sentences; no respiratory distress and no audible wheezes Gastrointestinal (Abdomen): Inspection/Auscultation: abdomen normal to inspection; abdomen not distended Percussion/Palpation: abdomen soft; abdomen nontender and no guarding Psychiatric: Orientation: alert, oriented x 3 and cooperative Affect: euthymic affect Genitourinary: no CVA tenderness Three way mueller catheter intact, draining clear yellow urine in tubing with pink sediment. CBI clamped at time of exam. Results & Data ([facility]) Vital Signs (Past 12 Hours) Vital Signs Temp Pulse Resp BP Pulse Ox 09/12/20 07:24 36.5 C 76 15 115/73 97 09/12/20 04:02 36.8 C 68 18 129/76 97 09/11/20 22:38 36.8 C 93 H 18 116/77 93 PG Care Time/CCT Total # of Minutes Spent Total Time Spent with Patient: Total time spent is greater than 50% in coordination of care (as documented) at patient's floor/unit and/or counseling patient: Coding Level of Care Code None Diagnoses Benign localized hyperplasia of prostate with urinary obstruction N40.1; N13.8 Bladder stones N21.0 Acute urinary retention R33.8
[2020-09-12] MEDS: DOCUSATE SODIUM 100 MG CAP PO SCH (09:17)
[2020-09-12] MEDS: oxyCODONE/ACETAMINOPHEN 5mg/325mg TAB PO PRN (13:10)
--- NOTE | 2020-09-15 22:03 | Discharge Summary ---
Date of Service September 15, 2020 Admission HPI Per Admitting Provider See H&P Admission Exam Per Admitting Provider See H&P Principal Diagnosis Bladder Stone and BPH with obstruction Discharge Exam General: Alert in no acute distress. HEENT: Normocephalic Atraumatic. Inspection normal. Psychologic: Normal affect. Skin: [place] and Dry. No rashes or visible lesions. Abdomen: Soft Non-distended. No rebound or guarding. Discharge Data Allergies Allergy/AdvReac Type Severity Reaction Status Date / Time No Known Allergies Allergy Unknown Verified 09/11/20 10:20 Procedures Performed Operation Date: 09/11/20 14:50 Actual Procedures p Transurethral Resection Prostate with destruction and extraction of stones - Noe Sanchez, DO Hospital Course (1) Benign localized hyperplasia of prostate with urinary obstruction: (2) Bladder stones: (3) Acute urinary retention: 65 year-old male patient who is POD#1 transurethral resection of prostate with destruction and extraction of stones with Dr. Sanchez. -Patient clinically progressing as expected. -He is afebrile, vital signs stable. -Labs reviewed - white count, hemoglobin, and creatinine stable. -Three-way mueller catheter intact draining clear yellow urine with pink sediment. -CBI clamped at time of exam, will reassess later this AM. -Advance diet to regular. -Discontinue IV fluids. -Encourage ambulation. -Will plan to reassess patient later this morning. -Likely discharge home today presuming he continues to clinically progress. -Maintain catheter upon discharge, will arrange appropriate outpatient follow- up. -Expected clinical course reviewed with patient, all questions answered. Total Time Total Time Spent Total Time Spent (In Minutes): 10 minutes Total Time Includes: Examination of the Patient, Discharge Planning, Medication Reconciliation and Communication With Other Providers Discharge Plan Discharge Items Patient Disposition: Home - Self-Care Reason For Visit: Benign Prostatic Hyperplasia with LUTS Discharge Diagnosis: Benign prostatic hyperplasia with LUTS Condition on Discharge: Good Activity: Per Instructions section Lifting: No more than 25 pounds Bathing Comment: No tub baths or soaking, okay to shower tomorrow. Sexual Activity: Wait until after follow-up appointment Exercise/Sports: Wait until after follow-up appointment Driving/Machine Use: Do not drive while taking narcotic pain medication Non-emergency contact: Surgeon and Urologist Call non-emergency contact if: you have any medication questions, your pain is not controlled, your pain is concerning for you and your temperature is above 101 Follow-up/Referrals: Chandu Angel III, CRNP [Primary Care Provider] - Noe Sanchez DO [Physician] - 09/23/20 9:00 am (Phone call will be between the hours of 9:00am - 4:00pm.) [facility],Nurse [FAKE FOR SCHEDULES] - 09/19/20 10:40 am (Voiding trial) Diet: Regular Addtl Attending Provider Instructions: Please take all medications as prescribed and keep all follow-ups as scheduled. Please call our office at [phone] with any questions, concerns or need to reschedule appointments for any reason. We are happy to assist you. Please hold your Aspirin today and restart tomorrow 09/13. Tips for your recovery at home: Dont be alarmed by brownish or reddish blood or clots in your urine. This is a result of the procedure. This may occur off and on for weeks to months after the procedure but should continue to improve. Drink plenty of fluids during the day (enough to keep your urine very light colored). This will help keep a healthy flow of urine. Do not lift >25 lbs until your followup Avoid constipation. Please use a stool softener (Colace) for the first two weeks after your procedure Be sure to finish the antibiotics as prescribed. If you go home with a catheter, please wash tubing where it enters your body twice daily with mild soap (Dove or Dial). Once your catheter is removed, expect some blood in your urine and some burning when you urinate. You should have an appointment to have this removed, if you do not please call our office to arrange. When to call [facility] at [phone]: Your urine contains heavy blood clots You are constantly leaking urine Fever of 101F or higher, chills, nausea, or vomiting Your pain is not relieved with medication Pending Studies at Discharge: Yes Studies:: Pathology Stand-Alone Forms: My ClaimIt, Smoking Cessation Medications and DC Order Prescriptions: New tramadol 50 mg tablet 50 mg PO BID PRN (Reason: pain) Qty: 10 RF: 0 docusate sodium [Colace] 100 mg capsule 100 mg PO BID Qty: 60 RF: 0 doxycycline hyclate 100 mg tablet 100 mg PO BID 7 Days Qty: 14 RF: 0 Continued tamsulosin [Flomax] 0.4 mg capsule 0.4 mg PO PM RF: 0 Discontinued tramadol 50 mg tablet 50 - 100 mg PO Q6 PRN (Reason: pain) Qty: 40 RF: 0 aspirin 81 mg Tablet,Delayed Release (Dr/Ec) 81 mg PO BID 45 Days Qty: 90 RF: 0 tramadol 50 mg Tablet 50 - 100 mg PO Q6H PRN (Reason: pain) Qty: 40 RF: 0 Discharge Orders: Discharge Order (Routine); Ordered 09/12/20 Ordered By: Steffany Jaramillo/Other Patient Handouts: Anatomy of the Male Urinary Tract, Prostate Anatomy, Benign Prostatic Hyperplasia, ED BPH (Enlarged Prostate), Lifestyle and Medical History ... Admission Data Admit Date/Time: 09/11/20 15:01 Attending Provider: Noe Sanchez Admit Provider: Noe Sanchez Primary Care Provider: Chandu Angel III Other Interventions: Discharge Summary Assessment (RN) Last Done: 09/12/20 12:42 Coding Level of Care Code D/C DAY MANAGEMENT <30 MINS Diagnoses Benign localized hyperplasia of prostate with urinary obstruction N40.1; N13.8 Bladder stones N21.0 Acute urinary retention R33.8
== END 2020-09-12 15:24 | disposition home or self-care (01) ==
LOC: ASU 09:50 → 3N 09:50